=== PATIENT | female | born 2000 | race African-American/Black ===

== ENCOUNTER 2018-01-01 08:46 | Emergency (ER) | payer OTHER ==
[~2018-01-01] VITALS: Ht 160 cm; Wt 52.2 kg
[~2018-01-01 08:46] MED LIST: TORADOL 10 MG T10 MG PO
[2018-01-01 09:12] LABS: ABSOLUTE LYMPHOCYTES 1.6 thou/uL (0.8-5.3); ABSOLUTE MONOCYTES 0.3 thou/uL (0.0-1.2); ABSOLUTE NEUTROPHILS 3.9 thou/uL (1.6-8.1); BASOPHILS 0.4 %; EOSINOPHILS 0.4 %; HEMATOCRIT 42.7 % (37.0-47.0); HEMOGLOBIN 14.1 gm/dL (12.0-15.0); LYMPHOCYTES 27.6 %; MCH 29.1 pg (26.0-34.0); MCHC 33.1 g/dL (28.0-37.0); MCV 87.9 fL (80.0-100.0); MONOCYTES 5.8 %; MPV 8.7 fl. (7.2-11.1); NUCLEATED RBCS 0 /100WBC; PLATELET COUNT* 217 thou/uL (150-400); POLYS 65.8 %; RBC 4.85 mil/uL (4.20-5.00); RDW-CV 12.5 % (10.5-14.5); WBC 5.9 thou/uL (4.0-11.0)
[2018-01-01 09:21] LABS: ANION GAP 8 mmol/L (7-16); BUN 15 mg/dL (7-18); CALCIUM 9.2 mg/dL (8.5-10.1); CHLORIDE 103 mmol/L (98-107); CO2 29 mmol/L (21-32); CREATININE 0.8 mg/dL (0.6-1.3); GLUCOSE 59 mg/dL (70-99); POTASSIUM 3.8 mmol/L (3.5-5.1); SODIUM 140 mmol/L (136-145)
[2018-01-01 09:28] LABS: ALBUMIN 4.2 g/dL (3.4-5.0); ALKALINE PHOSPHATASE 77 U/L (46-116); SGOT 13 U/L (15-37); SGPT 11 U/L (30-65); TOTAL BILIRUBIN 0.4 mg/dL (<0.1-1.0); TROPONIN-I LEVEL <0.06 ng/mL (<0.06)
[2018-01-01 10:10] VITALS: BP 125/72
--- NOTE | 2018-01-01 14:33 | EKG ---
[place] [address] ELECTROCARDIOGRAM REPORT Name: NUZHAT MCCALLA Antonino Arevalo Room: [facility]#: [id number] Admission: 01/01/18 Attend Phys: Discharge: 01/01/18 Date of : [birth year] Report #: [id number] THIS REPORT FOR: //name// [facility] ED Test Date: 2018-01-01 Test Time: 08:50:58 Pat Name: DARIA MCCALL Department: Room: Gender: F [employer] Cook: Tiffanie WEAVER : 2000 Requested By: Jaren Lira Order Number: [id number] MD: Dwayne Staples Measurements Intervals [place] Rate: 72 P: 13 MA: 173 QRS: 75 QRSD: 87 T: -2 QT: 364 QTc: 399 Interpretive Statements Sinus rhythm Borderline T wave abnormalities Baseline wander in lead(s) V5 No previous ECG available for comparison Electronically Signed On 01-01-2018 14:32:58 CDT by Dwayne Staples [email or web address] <ELECTRONICALLY SIGNED> By: Dwayne Staples MD, [facility] 01/01/18 1432 0850 0850 Dwayne Staples MD, FACC /EPI
== END 2018-01-01 10:11 | disposition home or self-care (01) ==
LOC: M.ERS 08:46
PROVIDERS: Emergency Medicine
DX: R07.89 Other chest pain (principal)

== ENCOUNTER 2021-04-09 12:02 | Emergency (ER) | payer MEDICAID ==
[~2021-04-09] VITALS: Ht 160 cm; Wt 59.0 kg
[2021-04-09] MEDS ORDERED: NOHOMEMEDICATIONS (12:55)
[2021-04-09] MEDS ORDERED: VIRTUSSIN AC L118 ML PO (13:40)
[2021-04-09] MEDS ORDERED: CHILDREN'S100 MG/5 M PO (13:40)
[2021-04-09] MEDS ORDERED: ONDANSETRON ODT4 MG PO (13:46)
[2021-04-09 13:50] VITALS: BP 137/89
== END 2021-04-09 13:50 | disposition home or self-care (01) ==
LOC: M.ERS 12:02
DX: U07.1 COVID-19 (principal)